=== PATIENT | male | born 1995 ===

== ENCOUNTER 2024-09-29 14:30 | Emergency (ER) | payer OTHER ==
[~2024-09-29] VITALS: Ht 182.9 cm; Wt 85.8 kg
--- NOTE | 2024-09-29 15:36 | ED.PDOC ---
Back pain HPI HPI Comments HPI: Poor Historian. 29-year-old male presents to the emergency department for evaluation of right shoulder pain. Patient states earlier today he was up on a ladder approximately 5 ft putting some [place] slight and he lost his balance and fell landed on his right shoulder. Denies any head or neck injury or any other trauma. Patient complains of right shoulder pain worse with movement. He denies any pain in the elbow for in the wrist or the hand. Patient was ambulatory and nontoxic in appearance in the lobby in no severe distress. Initial Vital Signs: Temp : 98.9 F BP: 125/79 HR: 76 RR: 18 SpO2: 99% Past Medical History: Denies Past Surgical History: Denies Social History: Denies smoking, ETOH, or drug use. Medications: No medications. Allergies: NKDA REVIEW OF SYSTEMS: CONSTITUTIONAL: Denies acute: fever, diaphoresis, chills, generalized weakness. HEAD: Denies acute: headache, photophobia Eyes: Denies acute: Double vision, vision loss, eye pain, eye discharge. EARS: Denies acute: tinnitus, hearing loss, ear discharge, ear pain, THROAT: Denies acute: sore throat, swelling, difficulty swallowing , pain with swallowing, change in voice. NECK: Denies acute: neck pain, neck swelling, stiff neck. HEART: Denies acute : chest pain, palpitations, LUNGS: Denies acute: SOB, wheezing, cough, hemoptysis ABDOMEN: Denies acute: abdominal pain, Nausea, Vomiting, diarrhea, melena , hematemesis, hematochezia SKIN: Denies acute: rash, redness, lesions, itchiness. EXTREMITIES: Denies acute: calf pain, numbness, tingling, weakness, Denies acute: Low back pain. Neuro: Denies acute: focal neurological deficit, motor or sensory focal neurological deficit, tremors, seizure like activity, confusion, dizziness, change in mental status, loss of bowel or bladder function, cauda equina like symptoms. : Denies acute: dysuria, hematuria, flank pain, increase in urinary frequency. PSYCH: Denies acute: hallucination, suicidal ideation, homicidal ideation. FEMALE: Denies acute: abnormal vaginal bleeding, foul odor, unusual discharge. PHYSICAL EXAM: General: no acute distress, awake and alert. Head: normocephalic, atraumatic. Neck: supple, trachea is midline, no swelling. Throat: Normal phonation. Eyes:, no erythema, no purulent discharge, no proptosis, no icterus. Heart: regular rate, regular rhythm, no significant murmur appreciated. Lungs: no apparent respiratory distress, Able to speak in full sentences. No wheezing, no rhonchi, no crackles. No stridors Clear to auscultation bilaterally. Abdomen: non tender to palpation, non distended, soft, no guarding, no rebound, + bowel sounds. Neuro: Awake, Alert, oriented to name, self, situation, follows commands GCS=15. Speech is normal. Skin: no petechia, no purpura, no cyanosis, non-pale, not jaundice. Lower extremities: --no - Pitting edema no deformity, no focal swelling, no calf TTP. Evaluation of the right upper extremity. Patient is wearing a sling from home. Decreased range of motion of the right upper extremity in the shoulder joint secondary to pain. No apparent contusion or bruising. Radial pulses palpable. Joint Runner muscle is intact in the affected extremity. Makes eye contact. moves all four extremities. Face: no apparent facial droop. Ambulating in the ED independently. Time Seen by MD: 15:19 Reviewed Notes: Nurses Notes, Medications, Allergies Allergies: Coded Allergies: NO KNOWN ALLERGIES (Unverified , 09/29/24) Information Source: Patient X-Ray, Labs, Meds, VS Vital Signs Date Time Temp Pulse Resp B/P (MAP) Pulse Ox O2 Delivery O2 Flow Rate FiO2 09/29/24 16:00 98.9 76 18 125/79 (94) [address] [address] Ph: [phone] DIAGNOSTIC IMAGING Diagnostic Imaging Report : [id number] Signed PATIENT: [place] [facility]: [id number] UNIT: [id number] : 1995 LOC: ER ROOM / BED: / AGE / SEX: 29 / M ADM STATUS: REG ER SERVICE [id number] ORDERING PHYSICIAN: JOSE A MINOR DO PROCEDURE(s): RSHD2 - R SHOULDER 2+ VIEW XRAY REASON: shouder dislocation ORDER NUMBER(s): [id number], ACCESSION NUMBER(s): [id number] CLINICAL INDICATION: shouder dislocation TECHNIQUE: 3 radiographic views of the right shoulder were obtained. Comparison: None FINDINGS/IMPRESSION: There is no evidence of acute fracture or dislocation. The visualized joint space is well maintained. The alignment is anatomical. There is no radiopaque foreign body. HS:Y ATED BY: YVONNE SAUCEDO Jr., DO DICTATED DATE/TIME: 09/29/241608 SIGNED BY: YVONNE SAUCEDO Jr., SIGNED DATE/TIME: 09/29/24 1609 CC: Time of 1ST Reevaluation: 20:05 (Multiple staff and myself were unable to locate the patient anywhere in his apartment with the lobby. Patient eloped. Was no opportunity to reassessed the patient and re-evaluate his shoulder. Earlier I spoke with him regarding possible outpatient need for MRI to rule out any other injuries. I ordered a sling for him but he did not receive it. He had his own homemade sling that he eloped with. He lives with his girlfriend.) Reevaluation 1ST: Unchanged Patient Education/Counseling: Diagnosis, Treatment Family Education/Counseling: No Family Present Departure 1 Departure Time of Disposition: 20:06 Impression: Primary Impression: Right shoulder injury Additional Impression: Eloped from emergency department Disposition: 07 LEFT AWOL/ELOPED Condition: Stable Discharged With: Self I personally scribed for JOSE A MINOR DO ([email or web address]) on 09/29/24 at 16:23. Electronically submitted by Brian Hdz ([email or web address]). I personally scribed for JOSE A MINOR DO ([email or web address]) on 09/29/24 at 19:00. Electronically submitted by Mercedes Rain ([email or web address]). JOSE A MINOR DO Sep 29, 2024 15:36
[2024-09-29] MEDS ORDERED: fentaNYL CITRATE 100 MCG/2 ML VL IV ONE (15:45)
[2024-09-29 16:00] VITALS: BP 125/79; PULSE 76; RESP 18; O2SAT 99
--- NOTE | 2024-09-29 16:11 | DVH ---
CLINICAL INDICATION: shouder dislocation TECHNIQUE: 3 radiographic views of the right shoulder were obtained. Comparison: None FINDINGS/IMPRESSION: There is no evidence of acute fracture or dislocation. The visualized joint space is well maintained. The alignment is anatomical. There is no radiopaque foreign body. HS:Y
[2024-09-29] MEDS ORDERED: HYDROcodone-ACET 5/325MG TAB PO ONE (16:45)
== END 2024-09-29 20:08 | disposition left against medical advice (07) ==
LOC: ER 14:30
DX: S40.911A Unspecified superficial injury of right shoulder, initial encounter (principal); W18.39XA Other fall on same level, initial encounter; Y93.89 Activity, other specified; Y92.89 Other specified places as the place of occurrence of the external cause; Y99.8 Other external cause status
CPT/HCPCS: 73030